=== PATIENT | female | born 1965 ===

== ENCOUNTER → 2018-07-15 16:04 | Outpatient (CLI) | payer OTHER ==
[~2018-07-15 16:04] MED LIST: CIPRO500 MG PO; LASIX20 MG PO; LOTREL 5-10 MG1 CAP PO; METFORMIN HCL850 MG PO; PERCOCET 5/3251 TAB PO; ZOCOR20 MG PO
== END | disposition home or self-care (01) ==
LOC: LAB 16:04
DX: H61.322 Acquired stenosis of left external ear canal secondary to inflammation and infection (principal)

== ENCOUNTER 2018-08-26 13:18 | Outpatient (CLI) | payer OTHER | END 2018-08-26 13:20 | disposition home or self-care (01) | LOC: RAD 501 13:18 | DX: I10 Essential (primary) hypertension (principal) ==

== ENCOUNTER 2018-09-05 05:45 | Day surgery (SDC) | payer OTHER | END 2018-09-05 15:00 | disposition home or self-care (01) | LOC: CIR.AMB 05:45 | DX: D24.1 Benign neoplasm of right breast (principal) ==

== ENCOUNTER → 2018-09-05 | Outpatient (CLI) | payer OTHER | END | disposition home or self-care (01) | LOC: MAMO-SONO 07:31 | DX: N60.21 Fibroadenosis of right breast (principal) ==